=== PATIENT | female | born 2000 | race American Indian/Alaskan Native ===

== ENCOUNTER 2021-09-09 21:01 | Emergency (ER) | payer MEDICAID ==
[2021-09-09 22:55] VITALS: BP 150/93
--- NOTE | 2021-09-10 00:36 | XRay Report ---
CHEST PA AND LATERAL VIEWS INDICATION: Cough: Covid+. COMPARISON: None. FINDINGS: Support devices: None. Heart: Within normal limits. Lungs/Pleura: There is mild airspace disease in the right lower lung. Left lung is clear. IMPRESSION: 1. Mild right lower lobe pneumonia. Signer Name: Roberth Montana MD Signed: 09/10/2021 12:32 AM Workstation Name: [id number]
--- NOTE | 2021-09-10 01:34 | Emergency Department Report ---
- General Chief Complaint: Upper Respiratory Infection Stated Complaint: COVID+ CHEST PAIN Source: patient Mode of arrival: Ambulatory Limitations: No Limitations - History of Present Illness MD Complaint: cough, rhinorrhea, nasal congestion, sinus pain -: Sudden, week(s) (1) Severity: moderate Severity scale (0 -10): 6 Quality: sharp, aching Consistency: constant Improves With: nothing Worsens With: nothing Context: sick contacts Associated Symptoms: denies other symptoms, rhinorrhea, nasal congestion, cough. denies: fever, chills, myalgias, diaphoresis, chest pain, shortness of breath, abdominal pain, nausea, vomiting, diarrhea, dysuria, rash, weight loss, epistaxis, hoarseness, ear pain, other Treatments Prior to Arrival: none - Related Data Previous Rx's Medication Instructions Recorded Last Taken Type Acetaminophen [Tylenol] 500 mg PO Q6HR PRN #30 tablet 09/10/21 Unknown Rx Ascorbic Acid [Vitamin C] 1,000 mg PO Q12H #30 tablet 09/10/21 Unknown Rx Benzonatate [Tessalon Perles] 100 mg PO Q8HR #30 capsule 09/10/21 Unknown Rx Cetirizine HCl [Zyrtec 10mg tab] 10 mg PO DAILY #30 tablet 09/10/21 Unknown Rx Doxycycline Hyclate 100 mg PO Q12H #20 capsule 09/10/21 Unknown Rx Zinc Acetate [Galzin 50mg CAP] 50 mg PO DAILY #30 capsule 09/10/21 Unknown Rx Allergies Allergy/AdvReac Type Severity Reaction Status Date / Time No Known Allergies Allergy Verified 09/10/21 00:21 ED Review of Systems ROS: Stated complaint: COVID+ CHEST PAIN Other details as noted in HPI ED Past Medical Hx - Past Medical History Previous Medical History?: No - Surgical History Past Surgical History?: No - Medications Home Medications: Home Medications Medication Instructions Recorded Confirmed Last Taken Type Acetaminophen [Tylenol] 500 mg PO Q6HR PRN #30 tablet 09/10/21 Unknown Rx Ascorbic Acid [Vitamin C] 1,000 mg PO Q12H #30 tablet 09/10/21 Unknown Rx Benzonatate [Tessalon Perles] 100 mg PO Q8HR #30 capsule 09/10/21 Unknown Rx Cetirizine HCl [Zyrtec 10mg tab] 10 mg PO DAILY #30 tablet 09/10/21 Unknown Rx Doxycycline Hyclate 100 mg PO Q12H #20 capsule 09/10/21 Unknown Rx Zinc Acetate [Galzin 50mg CAP] 50 mg PO DAILY #30 capsule 09/10/21 Unknown Rx ED Physical Exam - General Limitations: No Limitations ED Course Vital Signs 09/09/21 22:51 Temperature 98.2 F Pulse Rate 65 Respiratory 16 Rate Blood Pressure 150/93 [Left] O2 Sat by Pulse 98 Oximetry ED Medical Decision Making - Radiology Data Radiology results: report reviewed, image reviewed [facility] [address] [place] [address] XRay Report Signed Patient: ROLANOD CARMONA MR#: [id number] 2 : 2000 Acct:[id number] Age/Sex: 20 / F ADM Date: 09/09/21 Loc: ED Attending Dr: Ordering Physician: BRENDAN GARCIA Date of Service: 09/09/21 Procedure(s): XR chest routine 2V Accession Number(s): [id number] cc: BRENDAN GARCIA Fluoro Time In Minutes: CHEST PA AND LATERAL VIEWS INDICATION: Cough: Covid+. COMPARISON: None. FINDINGS: Support devices: None. Heart: Within normal limits. Lungs/Pleura: There is mild airspace disease in the right lower lung. Left lung is clear. IMPRESSION: 1. Mild right lower lobe pneumonia. Signer Name: Roberth Montana MD Signed: 09/10/2021 12:32 AM Workstation Name: [id number] Transcribed By: Dictated By: Roberth Montana MD Electronically Authenticated By: Roberth Montana MD Signed Date/Time: 09/10/2131 DD/ TD/TT: Critical care attestation.: If time is entered above; I have spent that time in minutes in the direct care of this critically ill patient, excluding procedure time. ED Disposition Clinical Impression: Pneumonia due to 2019 novel coronavirus, COVID-19 virus infection Community acquired pneumonia Qualifiers: Laterality: right Lung location: lower lobe of lung Qualified Code(s): J18.9 - Pneumonia, unspecified organism Is pt being admited?: No Does the pt Need Aspirin: No Condition: Stable Instructions: Bacterial Pneumonia (ED), COVID-19: How to Protect Yourself and O thers - CDC, Community-Acquired Pneumonia, Adult, [id number] Additional Instructions: The chest x-ray showed mild right lower lobe pneumonia which and at this time signs may be due to COVID-19 pneumonia. Therefore take medication with food, drink plenty of fluids and self quarantine for 10 days at home while taking medications. Drink plenty of fluids. Follow-up with your primary care physician once your quarantine duration and. Return to the ED immediately if symptoms get worse. Prescriptions: Acetaminophen [Tylenol] 500 mg PO Q6HR PRN #30 tablet PRN Reason: Pain , Severe (7-10) Doxycycline Hyclate 100 mg PO Q12H #20 capsule Zinc Acetate [Galzin 50mg CAP] 50 mg PO DAILY #30 capsule Benzonatate [Tessalon Perles] 100 mg PO Q8HR #30 capsule Ascorbic Acid [Vitamin C] 1,000 mg PO Q12H #30 tablet Cetirizine HCl [Zyrtec 10mg tab] 10 mg PO DAILY #30 tablet Referrals: [facility] [Provider Group] - 7-10 days Forms: Work/School Release Form(ED) Time of Disposition: 01:34 Print Language: CENTRAL AFRICAN
[2021-09-10] MEDS ORDERED: AZITHROMYCIN 250 MG TAB PO ONE (01:38)
[2021-09-10] MEDS ORDERED: LIDOCAINE-MPF (1%) 10 MG/1 ML VIAL 5 ML INFILTRATI ONE (01:38)
[2021-09-10] MEDS ORDERED: ACETAMINOPHEN 500 MG TAB PO ONE (02:00)
== END 2021-09-10 02:51 | disposition home or self-care (01) ==
LOC: ED 21:01
DX: U07.1 COVID-19 (principal); J12.82 Pneumonia due to coronavirus disease 2019
CPT/HCPCS: 71046; 96372; 99283; J0696